=== PATIENT | male | born 1985 | race Caucasian/White ===

== ENCOUNTER 2020-03-18 19:59 | Inpatient (IN) | payer MEDICAID, SELFPAY ==
[2020-03-18] VITALS (10 sets, daily range): BP systolic 115–129; BP diastolic 71–96; PULSE 102–138; RESP 16–26; TEMP 36.4; O2SAT 99–100
--- NOTE | ~2020-03-18 | XR_ITS ---
XR chest 1V DATE: 03/18/2020 21:18 INDICATION: Hyperglycemia. Type 2 diabetes. Smoker. TECHNIQUE: Portable AP chest views on 03/18/2020 at 2110 hours COMPARISON: None FINDINGS: Normal heart size. No hilar or mediastinal enlargement. No pulmonary infiltrate or consolid ation, pleural effusion or pulmonary vascular congestion or pneumothorax. IMPRESSION: Negative chest Reviewed, dictated and finalized at location A. CTOR OF ATHLETICS IMPRESSION: Negative chest
--- NOTE | 2020-03-18 20:08 | ED.GENADULT ---
HPI - General Adult General Chief complaint: Nausea/Vomiting/Diarrhea Stated complaint: N/V Time Seen by Provider: 03/18/20 20:07 Source: patient and family Mode of arrival: ambulatory Limitations: no limitations History of Present Illness HPI narrative: Patient is a type II diabetic that has been being treated with 500 mg of Metformin. He states that he was diagnosed when he lived in [place], he has lived here in [place] for couple months and has not seen a physician. His blood sugars have been 300-500 at home the entire time. This morning 0300 he began vomiting and has not been able to keep any liquid down since then. He denies any recent illness. does have a headache. When they check his blood sugar at home it was 509. He states he has lost 20# in the past 2 months. He is also concerned that he may have a yeast infection. Onset (ago): hour(s) Related Data Home Medications Medication Instructions Recorded Confirmed metformin 500 mg PO BID 03/18/20 Allergies Allergy/AdvReac Type Severity Reaction Status Date / Time Penicillins Allergy Unknown Verified 03/18/20 20:25 Review of Systems Review of Systems: All systems reviewed & are unremarkable except as noted in HPI and below PMFSH Past Medical History Medical History (Updated 03/18/20 @ 22:40 by Santo Hutchins MD) Diabetes mellitus Seizure disorder Family History Family History Sibling No problems noted. Social History Social History (Updated 03/18/20 @ 20:41 by Crista Worrell PA-C) Smoking status: Current every day smoker Alcohol intake: current Substance use: current Substance use type: marijuana Living arrangements: with family Exam Const: General: ill appearing Nutritional Appearance: thin HENMT: Mouth: Yes dry mucous membranes Teeth and gingiva: caries Throat: posterior oropharynx normal Eyes: Pupils: Equal, round and reactive pupils present Resp: Effort & Inspection: normal respiratory effort Auscultation: clear to auscultation bilaterally Cardio: Rate: regular rate and tachycardic GI: GI Palp: Yes Soft to palpation Auscultation: normal bowel sounds : Penis: Yes uncircumcised Meatus: other (balanitis) Back/Spine/Pelvis: Back: no CVA tenderness Skin: General skin exam: normal color Neuro: General: patient oriented x3 Extrem: General: normal to inspection Psych: Appearance: disheveled Mental Status: mental status grossly normal Course Course Emergency Course: I spoke with patient again about his diagnosis, his girlfriend stated the that diagnosed him didn't give a type. Just told them his 3 month average was 10 and I m a diabetic . Spoke with Dr. Hernández, would like ketone and lactic acid levels. A third liter of fluid before starting insulin drip. Spoke with Dr. Hutchins, he will admit patient to ICU. Discharge Plan Discharge Clinical Impression: DKA (diabetic ketoacidoses), Candidal balanitis Patient Disposition: Still a Patient Condition: Stable Prescriptions: No Action metformin 500 mg Tablet 500 mg PO BID RF: 0 Follow-up/Referrals: PHYSICIAN,GEOGRAPHIC AREA INTELLIGENCE OFFICER [Primary Care Provider] -
[2020-03-18 20:44] LABS: Alveolar/Arterial O2 Gradient 39.6 mmHg; Base Excess ABG -22.1 mEq/l (+/-2.0); Fractional Inspired Oxygen 21 %; HCO3 ABG 5.6 mEq/l (22.0-26.0); Oxygen Content ABG 23.1 %vol (16.0-22.0); Oxygen Saturation ABG 93.2 % (95.0-100.0); Oxyhemoglobin 94.9 % THb (90.0-100.0); PO2 ABG 87.5 mmHg (80.0-100.0); PO2 FiO2 Ratio Arterial Blood 4.17 %; Total Hemoglobin 17.3 g/dL (12.0-18.0)
[2020-03-18 20:47] LABS: Device ROOM AIR; Modified Allen's Test Pass; PCO2 ABG 18.9 mmHg (35.0-45.0); Site Drawn LEFT RADIAL; pH ABG 7.091 (7.350-7.450)
[2020-03-18 20:52] LABS: Basophils Absolute Auto 0.1 K/mm3 (0.0-0.1); Basophils Percent Auto 0.4 % (0.2-1.2); Eosinophils Percent Auto 0.1 % (0-4.4); Hematocrit 51.8 % (42.0-52.0); Hemoglobin 17.3 g/dL (14.0-18.0); Immature Granulocyte Absolute 0.14 K/mm3 (0.00-0.031); Lymphocytes Absolute Auto 0.78 K/mm3 (0.9-3.2); Lymphocytes Percent Auto 5.5 % (18.3-44.2); Mean Corpuscular HGB Conc 33.4 g/dl (32-36); Mean Corpuscular Volume 95.7 fl (80-100); Mean Platelet Volume 11.3 fl (7.4-10.4); Monocytes Absolute Auto 0.6 K/mm3 (0.1-0.6); Monocytes Percent Auto 4.3 % (2.6-8.5); Neutrophils Absolute Auto 12.6 K/mm3 (1.3-6.7); Neutrophils Percent Auto 88.7 % (45.5-73.1); Platelet Count Result 343 k/mm3 (150-375); Red Blood Count 5.41 M/mm3 (4.6-6.20); Red Cell Distribution Width 12.4 % (11.5-14.5); White Blood Count 14.1 K/mm3 (4.5-10.0)
[2020-03-18] MEDS: SODIUM CHLORIDE 0.9% IV 1,000 ML 999 ML IV CONT ×2 (20:52→22:11)
[2020-03-18] MEDS: ONDANSETRON INJ 4 MG/2 ML VIAL IV PUSH (20:53)
[2020-03-18 21:12] LABS: Alanine Aminotransferase 27 U/L (4-50); Albumin Level 5.3 g/dL (3.5-5.1); Alkaline Phosphatase 161 U/L (38-126); Anion Gap 31 mmol/L (8-16); Aspartate Amino Transferase 22 U/L (17-59); Bilirubin,Total 0.6 mg/dL (0.2-1.3); Blood Urea Nitrogen 16 mg/dL (9-20); Carbon Dioxide 7 mmol/L (22-30); Chloride 96 mmol/L (98-107); Estimated CRCL calculation 55 ml/min; Estimated Glomerular Filt Rate 49; Glucose 517 mg/dL (75-110); Potassium 6.3 mmol/L (3.4-5.0); Sodium 134 mmol/L (137-145)
[2020-03-18 21:20] LABS: Add Urine Microscopic? YES; Appearance Urine Clear (Clear); Bilirubin Urine Negative (Negative); Blood Urine 1+ (Negative); Color Urine Straw (Yellow); Glucose Urine UA 3+ mg/dL (Negative); Hyaline Casts Urine 15-19 /lpf; Ketones Urine 2+ mg/dL (Negative); Leukocyte Esterase Ur Negative LEU/UL (Negative); Mucus Urine Rare /lpf; Nitrate Urine Negative (Negative); Protein Urine 2+ mg/dL (Negative); RBC Urine 0-2 /hpf (0-2); Specific Grav Ur 1.024 (1.001-1.035); Urobilinogen Urine Negative mg/dL (<2.0); WBC Urine 0-3 /hpf
[2020-03-18 21:31] LABS: Glucose Point of Care 464 (65-105)
[2020-03-18 22:11] LABS: Lactic Acid Reflex 1.2 mmol/L (0.7-2.1)
[2020-03-18] MEDS: SODIUM CHLORIDE 0.9% IV 1,000 ML 999 ML (22:11)
--- NOTE | 2020-03-18 22:20 | PM.IMHP ---
H&P: HPI History of Present Illness Date/Time: 03/18/20 22:20 Chief Complaint: Nausea and vomiting Narrative: This is a pleasant 34 year old diabetic male who is also known to have a seizure disorder and presented to the hospital with a complaint of nausea, vomiting, and not being able to keep any food or fluid down. If he drinks any water he immediately starts to vomit. His symptoms have been ongoing today since 3 am. He reports that he is taking metformin as needed and usually only takes it when his blood sugars are greater than 500 mg/dl. He reports that his blood sugar readings are usually hi on his meter. He denies any fevers, chills, coughing, shortness of breath, wheezing, chest pain, palpitations, dysuria, hematuria, diarrhea or rectal bleeding. He does however report polyuria. He has lost 20 pounds over the past two months. He believes that his last HgbA1c was around 10. The patient was evaluated in the ER tonight and found to have an elevated blood sugar of 517 mg/dl. ABG demonstrated a metabolic acidosis with an increased anion gap. He was treated with 3L of NS IV bolus in the ER and started on an insulin drip. Chairman Ceo has been consulted by ER provider. The patient has no other complaints. Review of Systems Review of Systems: All systems reviewed & are unremarkable except as noted in HPI and below PMFSH Past Medical History Medical History (Updated 03/18/20 @ 22:45 by Santo Hutchins MD) Diabetes mellitus Seizure disorder Family History Family History Sibling No problems noted. Social History Social History Smoking status: Current every day smoker Alcohol intake: current Substance use: current Substance use type: marijuana Living arrangements: with family Comments Past surgical history is negative. Meds Home Medications and Allergies Home Medications Medication Instructions Recorded Confirmed Type metformin 500 mg PO BID 03/18/20 History Allergies Allergy/AdvReac Type Severity Reaction Status Date / Time Penicillins Allergy Unknown Verified 03/18/20 20:25 Vital Signs Vital Signs - 24 hr 03/18/20 20:09 03/18/20 20:53 Temperature 36.4 C L Pulse Rate 138 H 102 H Respiratory Rate 20 20 Blood Pressure 128/87 115/89 Pulse Oximetry 100 100 Exam Const: General: cooperative, no acute distress, alert and awake Nutritional Appearance: thin and underweight Orientation/consciousness: patient oriented x3 HENMT: Head: normal to inspection General nose exam: Normal external nose present Face and sinus: normal facial exam Mouth: Yes dry mucous membranes and Yes other (missing teeth, dental caries++ ) Eyes: Pupils: Equal, round and reactive pupils present EOM: EOMs intact bilaterally Neck: Neck: supple and no JVD Thyroid: thyroid normal Lymphatic: lymphadenopathy not noted Resp: Effort & Inspection: normal respiratory effort Auscultation: clear to auscultation bilaterally Cardio: Rate: regular rate Rhythm: regular rhythm Heart sounds: no murmurs GI: Inspection: normal to inspection Auscultation: normal bowel sounds Skin: General skin exam: normal color and no rashes or lesions noted Neuro: General: patient oriented x3 Cranial nerves: Yes CN's II-XII intact bilaterally and Yes Equal, round and reactive pupils present Speech: normal speech Motor exam (neuro): 5/5 motor strength present throughout Sensory Exam: normal sensation Extrem: General: normal to inspection and no edema Psych: Mental Status: mental status grossly normal Affect: normal affect H&P: Results Labs Labs: Short CBC 03/18/20 Range/Units 20:44 WBC 14.1 H (4.5-10.0) K/mm3 Hgb 17.3 (14.0-18.0) g/dL Hct 51.8 (42.0-52.0) % Plt Count 343 (150-375) k/mm3 [facility] 03/18/20 20:44 Sodium 134 L Potassium 6.3 H* Chloride 96 L Carbon Dioxide 7 L BUN
[2020-03-18 22:34] LABS: Glucose Point of Care 348 (65-105)
[2020-03-18 23:20] LABS: Glucose Point of Care 365 (65-105)
[2020-03-18] MEDS: INSULIN HUMAN REGULAR (*BKC) 100 UNITS in SODIUM CHLORIDE 0.9% IV 99 ML 6.1 UNITS IV CONT (23:24)
--- NOTE | 2020-03-18 23:44 | PC.NURSE ---
Spoke to Leonardo regarding insulin drip saying discontinued. Leonardo states continue administering insulin drip and he will send a new label to be placed over the old labels on the drip. Rate still 6.1mL/hr.
[2020-03-19] VITALS (12 sets, daily range): BP systolic 105–131; BP diastolic 67–79; PULSE 79–124; RESP 15–23; TEMP 36.3–36.7; O2SAT 98–100; BMI 19.6
[2020-03-19 00:06] LABS: Alveolar/Arterial O2 Gradient 7.5 mmHg; Base Excess ABG -22.9 mEq/l (+/-2.0); Fractional Inspired Oxygen 21 %; HCO3 ABG 5.3 mEq/l (22.0-26.0); Oxygen Content ABG 21.1 %vol (16.0-22.0); Oxygen Saturation ABG 96.8 % (95.0-100.0); Oxyhemoglobin 96.1 % THb (90.0-100.0); PO2 ABG 119.8 mmHg (80.0-100.0); Total Hemoglobin 15.5 g/dL (12.0-18.0)
[2020-03-19 00:07] LABS: Device ROOM AIR; Modified Allen's Test Pass; PCO2 ABG 18.7 mmHg (35.0-45.0); Site Drawn LEFT RADIAL; pH ABG 7.074 (7.350-7.450)
--- NOTE | 2020-03-19 00:28 | PC.NURSE ---
This patient, Judson Gaffney, was admitted to Intensive Care Unit-8. Patient/family oriented to hospital policies and general routines including ID bracelet, bed and alarms, visiting hours, pain management, procedures, bathroom and other care routines, personal items, smoking policy, room service/diet, and visiting hours. Information on how to activate the Rapid Response Team has been discussed. Patient/Family are encouraged to report perceived risks to care and to ask questions if they do not understand what they are told or what they should do.
[2020-03-19] MEDS: INSULIN HUMAN REGULAR (*BKC) 100 UNITS in SODIUM CHLORIDE 0.9% IV 99 ML 7.6 UNITS IV CONT (00:30)
[2020-03-19] MEDS: SODIUM CHLORIDE 0.9% IV 1,000 ML 150 ML IV CONT (01:36)
[2020-03-19 01:56] LABS: Anion Gap 22 mmol/L (8-16); Blood Urea Nitrogen 13 mg/dL (9-20); Calcium 8.8 mg/dL (8.4-10.2); Carbon Dioxide 6 mmol/L (22-30); Chloride 113 mmol/L (98-107); Estimated CRCL calculation 87 ml/min; Estimated Glomerular Filt Rate > 60; Glucose 206 mg/dL (75-110); Lipase 309 U/L (23-300); Magnesium 2.1 mg/dL (1.6-2.3); Phosphorus 4.1 mg/dL (2.5-4.5); Potassium 4.5 mmol/L (3.4-5.0); Sodium 141 mmol/L (137-145)
[2020-03-19 02:04] LABS: Hemoglobin A1C > 14.0 % (<5.7)
[2020-03-19] MEDS: KCL 20 MEQ/D5/0.45% SOD CHL 1,000 ML 150 ML IV CONT ×2 (02:44→10:23)
[2020-03-19 02:50] LABS: Glucose Point of Care 223 (65-105)
[2020-03-19 02:50] LABS: Glucose Point of Care 171 (65-105)
[2020-03-19 02:50] LABS: Glucose Point of Care 314 (65-105)
[2020-03-19 05:46] LABS: Glucose Point of Care 146 (65-105)
[2020-03-19 05:46] LABS: Glucose Point of Care 167 (65-105)
[2020-03-19 05:46] LABS: Glucose Point of Care 152 (65-105)
[2020-03-19 06:32] LABS: Glucose Point of Care 187 (65-105)
[2020-03-19 06:35] LABS: Basophils Percent Auto 0.4 % (0.2-1.2); Eosinophils Percent Auto 0.1 % (0-4.4); Hemoglobin 14.6 g/dL (14.0-18.0); Immature Granulocyte Absolute 0.06 K/mm3 (0.00-0.031); Immature Granulocyte Percent A 0.6 % (0-0.5); Lymphocytes Percent Auto 16.8 % (18.3-44.2); Mean Corpuscular Hemoglobin 31.5 pg (26-34); Mean Corpuscular Volume 92.7 fl (80-100); Monocytes Absolute Auto 0.8 K/mm3 (0.1-0.6); Monocytes Percent Auto 8.5 % (2.6-8.5); Neutrophils Percent Auto 73.6 % (45.5-73.1); Platelet Count Result 284 k/mm3 (150-375); Red Blood Count 4.64 M/mm3 (4.6-6.20); Red Cell Distribution Width 12.8 % (11.5-14.5); White Blood Count 9.5 K/mm3 (4.5-10.0)
[2020-03-19 06:47] LABS: Anion Gap 12 mmol/L (8-16); Blood Urea Nitrogen 11 mg/dL (9-20); Calcium 8.9 mg/dL (8.4-10.2); Carbon Dioxide 13 mmol/L (22-30); Chloride 113 mmol/L (98-107); Estimated CRCL calculation 110 ml/min; Estimated Glomerular Filt Rate > 60; Glucose 175 mg/dL (75-110); Potassium 4.6 mmol/L (3.4-5.0); Sodium 138 mmol/L (137-145)
[2020-03-19 08:50] LABS: Glucose Point of Care 141 (65-105)
[2020-03-19 09:24] LABS: Anion Gap 9 mmol/L (8-16); Blood Urea Nitrogen 11 mg/dL (9-20); Calcium 8.8 mg/dL (8.4-10.2); Carbon Dioxide 16 mmol/L (22-30); Chloride 113 mmol/L (98-107); Estimated CRCL calculation 110 ml/min; Estimated Glomerular Filt Rate > 60; Glucose 127 mg/dL (75-110); Potassium 4.2 mmol/L (3.4-5.0); Sodium 138 mmol/L (137-145)
[2020-03-19 09:41] LABS: Glucose Point of Care 116 (65-105)
[2020-03-19 10:31] LABS: Glucose Point of Care 71 (65-105)
[2020-03-19] MEDS: INSULIN DETEMIR 100 UNITS/ML 12 UNITS SUB-Q (12:12)
[2020-03-19 12:20] LABS: Glucose Point of Care 123 (65-105)
--- NOTE | 2020-03-19 14:32 | WPDCNINT ---
Assessment and Plan Assessment and plan (1) DKA (diabetic ketoacidoses): Qualifiers: Diabetes mellitus type: type 2 Diabetes mellitus complication detail: without coma Qualified Code(s): E11.10 - Type 2 diabetes mellitus with ketoacidosis without coma Code(s): E11.10 - Type 2 diabetes mellitus with ketoacidosis without coma Status: Acute Assessment and Plan: Patient presented with hyperglycemia, nausea, vomiting, anion gap metabolic acidosis -patient was in DKA in the ER, was given IV fluids and started on insulin infusion -this morning and grinding gap is closed, blood sugars much improved, patient transition to long-acting insulin and sliding scale insulin with Accu-Cheks -start diabetic diet -will dietitian evaluate the patient -para educator has been consulted -hemoglobin A1c > 14.0 this admission (2) Tobacco dependence: Code(s): F17.200 - Nicotine dependence, unspecified, uncomplicated Status: Acute Assessment and Plan: Counseled patient on cessation of tobacco and marijuana use -patient states that he has been thinking of quitting and is going to try (3) Seizure disorder: Code(s): G40.909 - Epilepsy, unspecified, not intractable, without status epilepticus Status: Chronic Assessment and Plan: Currently does not take any medications (4) Acute renal failure: Qualifiers: Acute renal failure type: unspecified Qualified Code(s): N17.9 - Acute kidney failure, unspecified Code(s): N17.9 - Acute kidney failure, unspecified Status: Acute Assessment and Plan: Acute kidney injury secondary to nausea, vomiting, dehydration secondary to decreased p.o. intake -creatinine at admission was 1.6, this morning it is 0.8 -patient was adequately fluid-resuscitated, urine output has been adequate, continue monitor urine output, renal function electrolytes (5) Acute dehydration: Code(s): E86.0 - Dehydration Status: Acute Assessment and Plan: Resolved Additional Plan Discussed with patient updated with his condition and plan of care. Disease aware that he will be transition to long-acting insulin sliding scale insulin. nurse educator and dietitian to evaluate the patient. I discussed with patient regarding a taking his medications regularly his diabetes. Also counseled patient on cessation of tobacco use Code status: Full code Critical care time spent: 41 minutes Due to a high probability of clinically significant, life threatening deterioration, the patient required my highest level of preparedness to intervene emergently and I personally spent this critical care time directly and personally managing the patient. This critical care time included obtaining a history; examining the patient; pulse oximetry; ordering and review of studies; arranging urgent treatment with development of a management plan; evaluation of patient's response to treatment; frequent reassessment; and discussions with other providers. It was exclusive of separately billable procedures and treating other patients and teaching time. Please see Assessment and Plan section and the rest of the note for further information on patient assessment and treatment Teaching Fellow Consult Note Consult date: 03/19/20 Time Seen: 07:12 Reason for consult: Diabetic ketoacidosis, nausea, vomiting HPI: Judson Gaffney is a 34 year old male with history of diabetes, seizures the ED overnight complains of nausea, vomiting and unable to keep any liquids of solids down. Patient states that his blood sugars have been in the 300-5 0s at home since the time he was diagnosed a couple of months ago with diabetes when he lived in [place]. Patient has not been taking his medications regularly. Patient was given 3 L IV fluids in the ER, started on insulin infusion and transfer the ICU for further management. Patient seen and examined this morning in the ICU, is awake, alert, an
--- NOTE | 2020-03-19 15:07 | PC.NURSE ---
1507- CALLED AND LEFT MESSAGE FOR DR. PEREZ WITH UPDATES ON PT. REQUESTED A CALL BACK.
[2020-03-19 16:05] LABS: Glucose Point of Care 320 (65-105)
[2020-03-19] MEDS: INSULIN ASPART (*BKC) 100 UNITS/ML SUB-Q ×2 (16:06→18:14)
--- NOTE | 2020-03-19 17:26 | PM.IMPN ---
Progress Note: A&P Assessment and Plan (1) DKA (diabetic ketoacidoses): Qualifiers: Diabetes mellitus complication detail: without coma Diabetes mellitus type: type 2 Qualified Code(s): E11.10 - Type 2 diabetes mellitus with ketoacidosis without coma Code(s): E11.10 - Type 2 diabetes mellitus with ketoacidosis without coma Status: Acute Assessment and Plan: Patient with DKA on admission with anion gap of 31 and a glucose of 517. PH was 7.09. Appears to be secondary to uncontrolled diabetes mellitus. Admitted to the ICU and started on DKA protocol with insulin drip and IV fluids. AG closed and he was able to be transitioned to SQ insulin. (2) DM hyperosmolarity type II: Code(s): E11.00 - Type 2 diabetes mellitus with hyperosmolarity without nonketotic hyperglycemic-hyperosmolar coma ([facility]) Status: Acute Assessment and Plan: A1c > 14. Patient known to have diabetes and was on metformin on admission. This will not be continued. Discussed with childbirth educator. Will adjust his insulin regimen. (3) Acute renal failure: Qualifiers: Acute renal failure type: unspecified Qualified Code(s): N17.9 - Acute kidney failure, unspecified Code(s): N17.9 - Acute kidney failure, unspecified Status: Acute Assessment and Plan: Creatinine 1.6 on admission felt to be prerenal and likely secondary to volume depletion. Renal function is normalized IV fluids (4) Hyperkalemia: Code(s): E87.5 - Hyperkalemia Status: Acute Assessment and Plan: Potassium 6.3 on admission related to above. Repeat potassium normal now. (5) Leukocytosis: Qualifiers: Leukocytosis type: unspecified Qualified Code(s): D72.829 - Elevated white blood cell count, unspecified Code(s): D72.829 - Elevated white blood cell count, unspecified Status: Acute Assessment and Plan: White blood cell count [id number] on admission likely secondary to acute DKA. Repeat white count normal now. (6) Acute dehydration: Code(s): E86.0 - Dehydration Status: Acute Assessment and Plan: Secondary to hyperglycemia and polyuria. Treated with IV hydration (7) Tobacco dependence: Code(s): F17.200 - Nicotine dependence, unspecified, uncomplicated Status: Acute Assessment and Plan: Patient has been counseled about the benefits of tobacco cessation. (8) Seizure disorder: Code(s): G40.909 - Epilepsy, unspecified, not intractable, without status epilepticus Status: Chronic Assessment and Plan: The patient is currently not taking any seizure medications. He believes his last seizure was in October of last year. Arrange for patient to follow-up with neurology as an outpatient Subjective Date/time seen: 03/19/20 17:26 Interval history: Date of service 03/19 34yo male with seizures and DM here for nausea and vomiting and found to have DKA. Eating okay now. No further nausea or vomiting. No chest pain or shortness of breath. Still has a cough but this has improved. Was having right flank pain related to the vomiting but this also has improved. No diarrhea. No loss of smell or taste. Exam Narrative: Exam Narrative: AF 98.0 105/79 95 20 100% Gen - NARD HEENT -poor dentition Chest - CTA bilaterally, nml RR CV - RRR S1/S2. Telemetry showing no significant dysrhythmias. Abd - Soft, NT/ND, Positive BS Ext - No pedal edema Neuro - Alert and oriented. Nonfocal exam. Psych - Nml mood and affect Skin - Warm and dry Objective Data Vital Signs Vital Signs: Vital Signs - 24 hr 03/18/20 20:09 03/18/20 20:53 03/18/20 21:30 Temperature 97.5 F L Pulse Rate 138 H 102 H 105 H Respiratory Rate 20 20 23 H Blood Pressure 128/87 115/89 121/96 H Pulse Oximetry 100 100 100 03/18/20 22:15 03/18/20 23:00 03/18/20 23:01 Temperature 97.6 F Pulse Rate 103 H 113 H 110 H Re
[2020-03-19 17:56] LABS: Anion Gap 14 mmol/L (8-16); Blood Urea Nitrogen 11 mg/dL (9-20); Calcium 9.2 mg/dL (8.4-10.2); Carbon Dioxide 13 mmol/L (22-30); Chloride 107 mmol/L (98-107); Estimated CRCL calculation 110 ml/min; Estimated Glomerular Filt Rate > 60; Glucose 301 mg/dL (75-110); Potassium 4.3 mmol/L (3.4-5.0); Sodium 134 mmol/L (137-145)
[2020-03-19 17:57] LABS: Anion Gap 16 mmol/L (8-16); Blood Urea Nitrogen 11 mg/dL (9-20); Carbon Dioxide 12 mmol/L (22-30); Chloride 106 mmol/L (98-107); Estimated CRCL calculation 110 ml/min; Estimated Glomerular Filt Rate > 60; Glucose 300 mg/dL (75-110); Potassium 4.3 mmol/L (3.4-5.0); Sodium 134 mmol/L (137-145)
[2020-03-19] MEDS: INSULIN GLARGINE (*BKC) 100 UNITS/ML 14 UNITS SUB-Q (20:40)
[2020-03-19 21:06] LABS: Glucose Point of Care 367 (65-105)
[2020-03-19] MEDS: INSULIN ASPART (*BKC) 100 UNITS/ML 8 UNITS SUB-Q (21:24)
[2020-03-19 21:29] LABS: Glucose Point of Care 362 (65-105)
[2020-03-20] VITALS: BP 109/83; PULSE 88; RESP 16; O2SAT 100
[2020-03-20 04:00] VITALS: BP 119/62; PULSE 72; RESP 19; TEMP 36.7; O2SAT 100
[2020-03-20 04:45] LABS: Anion Gap 11 mmol/L (8-16); Blood Urea Nitrogen 10 mg/dL (9-20); Calcium 8.9 mg/dL (8.4-10.2); Carbon Dioxide 18 mmol/L (22-30); Chloride 107 mmol/L (98-107); Estimated CRCL calculation 110 ml/min; Estimated Glomerular Filt Rate > 60; Glucose 219 mg/dL (75-110); Potassium 3.7 mmol/L (3.4-5.0); Sodium 136 mmol/L (137-145)
--- NOTE | 2020-03-20 06:35 | PC.NURSE ---
This Patient Judson Gaffney was moved to 2nd medical room 242. Report was given per this nurse to the oncoming nurse. Patient was transferred out of ICU bed 8 by wheelchair per medical review coordinator at 0635. Belongings and items sent with patient.
--- NOTE | 2020-03-20 06:56 | PC.NURSE ---
This patient, Judson Gaffney, was received from [ ICU] on 03/20/20 at 0657. Patient/family oriented to unit policies and routines.
[2020-03-20 08:00] VITALS: BP 118/62; PULSE 96; RESP 18; TEMP 36.6; O2SAT 99
[2020-03-20 08:08] LABS: Glucose Point of Care 267 (65-105)
[2020-03-20] MEDS: INSULIN ASPART (*BKC) 100 UNITS/ML SUB-Q ×4 (08:11→11:28)
[2020-03-20 09:50] VITALS: O2SAT 100
[2020-03-20 11:27] LABS: Glucose Point of Care 329 (65-105)
--- NOTE | 2020-03-20 12:57 | PM.DS ---
DS: Admitting Diagnosis Admitting Diagnosis Admitting Diagnosis: Nausea and vomiting DS: Discharge Diagnosis Discharge Diagnosis (1) DKA (diabetic ketoacidoses): Qualifiers: Diabetes mellitus type: type 2 Diabetes mellitus complication detail: without coma Qualified Code(s): E11.10 - Type 2 diabetes mellitus with ketoacidosis without coma Code(s): E11.10 - Type 2 diabetes mellitus with ketoacidosis without coma Status: Acute Assessment and Plan: Patient with DKA on admission with anion gap of 31 and a glucose of 517. PH was 7.09. Appears to be secondary to uncontrolled diabetes mellitus. Admitted to the ICU and started on DKA protocol with insulin drip and IV fluids. AG closed and he was able to be transitioned to SQ insulin. (2) DM hyperosmolarity type II: Code(s): E11.00 - Type 2 diabetes mellitus with hyperosmolarity without nonketotic hyperglycemic-hyperosmolar coma ([facility]) Status: Acute Assessment and Plan: A1c > 14. Patient known to have diabetes and was on metformin on admission. This will not be continued at this time given his recent episode of metabolic acidosis. Discussed with community nutrition educator. Insulin started and his insulin regiment was adjusted. He was taught how to administer insulin. DM education provided to the patient by myself and by the community nutrition educator. All questions answered. He feels ready for discahrge. Patient does state he has a meter, lancets and test strips at home he does not need refills. He was instructed to check his sugar 4 times a day, record and bring into your doctor for review. (3) Acute renal failure: Qualifiers: Acute renal failure type: unspecified Qualified Code(s): N17.9 - Acute kidney failure, unspecified Code(s): N17.9 - Acute kidney failure, unspecified Status: Acute Assessment and Plan: Creatinine 1.6 on admission felt to be prerenal and likely secondary to volume depletion. Renal function normalized with IV fluids (4) Hyperkalemia: Code(s): E87.5 - Hyperkalemia Status: Acute Assessment and Plan: Potassium 6.3 on admission related to above. Repeat potassium normal now. (5) Leukocytosis: Qualifiers: Leukocytosis type: unspecified Qualified Code(s): D72.829 - Elevated white blood cell count, unspecified Code(s): D72.829 - Elevated white blood cell count, unspecified Status: Acute Assessment and Plan: White blood cell count [id number] on admission likely secondary to acute DKA. Repeat white count normal now. (6) Acute dehydration: Code(s): E86.0 - Dehydration Status: Acute Assessment and Plan: Secondary to hyperglycemia and polyuria. Treated with IV hydration (7) Tobacco dependence: Code(s): F17.200 - Nicotine dependence, unspecified, uncomplicated Status: Acute Assessment and Plan: Patient has been counseled about the benefits of tobacco cessation. (8) Seizure disorder: Code(s): G40.909 - Epilepsy, unspecified, not intractable, without status epilepticus Status: Chronic Assessment and Plan: The patient is currently not taking any seizure medications. He believes his last seizure was in October of last year. Arrange for patient to follow-up with neurology as an outpatient. Was instructed not to drive given his seizure history. He voices understanding of this. DS: Summary Hospital Course Reason for hospitalization: 34-year-old male with diabetes here for nausea and vomiting and found to have DKA. Please see H&P for details. Hospital Course: Please see above for details of hospital course. Status at Discharge Cognitive/behavioral status at discharge: Patient is stable for discharge. Time Spent with Patient Time attestation: Total time spent providing and/or coordinating discharge services: 35 minutes Time spent: Greater than 30 minutes Ex
[2020-03-20 14:00] VITALS: BP 125/65; PULSE 86; RESP 16; TEMP 36.4; O2SAT 99
--- NOTE | 2020-03-20 18:37 | PC.NURSE ---
Patients pharmacy in [place] called back to nurses station stating that his Medicaid insurance will not cover prescriptions written by Dr. Lopez. Spoke with the pharmacists personally and she stated there was nothing they could do since Dr. Lopez is not enrolled in Medicaid through [place].? Spoke with superintendent house, Dr. Lopez, ED care director and patient to try and resolve issue. Dr. Lopez called [facility] in [place] and pharmacist was able to resolve issue over the phone with him.
== END 2020-03-20 14:33 | disposition home or self-care (01) | DRG 420 ==
LOC: ANHED 22:40 → ANHICU 03-19 07:04 → ANH2MED 03-20 13:04 → ANHICU 03-22 16:06
PROVIDERS: Physician Assistant; Admitting Provider Family Medicine; Emergency Provider Emergency Medicine; Visit Provider Internal Medicine
DX: E11.10 Type 2 diabetes mellitus with ketoacidosis without coma (principal); N17.9 Acute kidney failure, unspecified; E11.00 Type 2 diabetes mellitus with hyperosmolarity without nonketotic hyperglycemic-hyperosmolar coma (NKHHC); E87.5 Hyperkalemia; G40.909 Epilepsy, unspecified, not intractable, without status epilepticus; E86.0 Dehydration; D72.829 Elevated white blood cell count, unspecified; F17.210 Nicotine dependence, cigarettes, uncomplicated; Z28.21 Immunization not carried out because of patient refusal; Z79.84 Long term (current) use of oral hypoglycemic drugs
CPT/HCPCS: 36415; 36600; 71045; 80048; 80053; 81001; 82010; 82805; 82948; 83036; 83605; 83690; 83735; 84100; 85025; 96361; 96374; 99285; J1815; J2405; J3480; J7030